=== PATIENT | male | born 1965 | race Caucasian/White ===

== ENCOUNTER 2019-10-05 20:30 | Emergency (ER) | payer MEDICAID ==
[~2019-10-05] VITALS: Ht 185.4 cm; Wt 83.9 kg
[2019-10-05] MEDS ORDERED: IBUPROFEN 800 MG TAB PO ONE (22:00)
[2019-10-05 22:15] VITALS: BP 100/77
== END 2019-10-05 23:15 | disposition home or self-care (01) ==
LOC: ER 20:34
DX: R51 Headache (principal); V49.9XXA Car occupant (driver) (passenger) injured in unspecified traffic accident, initial encounter; Y93.I9 Activity, other involving external motion; Y92.410 Unspecified street and highway as the place of occurrence of the external cause; Y99.8 Other external cause status
CPT/HCPCS: 70450

== ENCOUNTER 2019-10-06 11:38 | Emergency (ER) | payer MEDICAID ==
[~2019-10-06] VITALS: Ht 185.4 cm; Wt 83.9 kg
[2019-10-06 11:59] VITALS: BP 132/83
[2019-10-06] MEDS ORDERED: KETOROLAC TROMETH 60MG/2ML VIAL IM ONE (12:15)
== END 2019-10-06 12:57 | disposition home or self-care (01) ==
LOC: EDBD 11:38 → ER 11:38
DX: S39.012A Strain of muscle, fascia and tendon of lower back, initial encounter (principal); F17.210 Nicotine dependence, cigarettes, uncomplicated; V89.2XXA Person injured in unspecified motor-vehicle accident, traffic, initial encounter; Y93.89 Activity, other specified; Y92.410 Unspecified street and highway as the place of occurrence of the external cause; Y99.8 Other external cause status
CPT/HCPCS: 96372; 99283; J1885